=== PATIENT | female | born 1945 | race Caucasian/White ===

== ENCOUNTER 2018-11-11 15:19 | Emergency (ER) | payer MEDICARE | END 2018-11-11 16:35 | disposition home or self-care (01) | LOC: EDH 15:19 | DX: S63.591A Other specified sprain of right wrist, initial encounter (principal); S50.01XA Contusion of right elbow, initial encounter; E11.9 Type 2 diabetes mellitus without complications; Z88.1 Allergy status to other antibiotic agents; W22.8XXA Striking against or struck by other objects, initial encounter; Y93.89 Activity, other specified; Y92.098 Other place in other non-institutional residence as the place of occurrence of the external cause; Y99.8 Other external cause status | CPT/HCPCS: 29125; 73110 ==